=== PATIENT | male | born 1955 | race Caucasian/White ===

== ENCOUNTER → 2019-04-23 | Outpatient (CLI) | payer MEDICARE ==
[~2019-04-23] MED LIST: ASPI81CH PO; DOCU100 PO; HYDR1TAB94 PO
== END ==
LOC: PLD 08:26 → LAB SHORT 08:26
DX: D18.01 Hemangioma of skin and subcutaneous tissue (principal)
CPT/HCPCS: 88305

== ENCOUNTER 2020-05-16 09:18 | Emergency (ER) | payer MEDICARE, BC ==
[~2020-05-16] VITALS: Ht 170.2 cm; Wt 90.7 kg
[~2020-05-16 09:18] MED LIST changes: +XARELTO15 MG PO
== END 2020-05-16 10:35 | disposition home or self-care (01) ==
LOC: ER 09:18
DX: M79.604 Pain in right leg (principal); Z79.82 Long term (current) use of aspirin; Z86.718 Personal history of other venous thrombosis and embolism; Z79.899 Other long term (current) drug therapy
CPT/HCPCS: 93971; 99283-25

== ENCOUNTER 2021-03-10 07:28 | Day surgery (SDC) | payer MEDICARE, BC ==
[~2021-03-10] VITALS: Ht 170.2 cm; Wt 89.2 kg
[2021-03-10] MEDS ORDERED: ASPI325 (07:37)
--- NOTE | 2021-03-10 08:23 | NUR ---
03/10/21 0823 Cammy Velazco PT. STATES "HEADACHE IN THE MAKING." DIDN'T SLEEP LAST NIGHT & HASN'T HAD ANYTHING TO EAT OR DRINK.
== END 2021-03-10 09:40 | disposition home or self-care (01) ==
LOC: ORSCSDS 07:28
PROVIDERS: Surgery
PROC: 0DJD8ZZ Inspection of Lower Intestinal Tract, Via Natural or Artificial Opening Endoscopic (ICD-10-PCS; principal; 2021-03-10 08:30)
DX: Z12.11 Encounter for screening for malignant neoplasm of colon (principal); Z86.010 Personal history of colon polyps; I10 Essential (primary) hypertension; I48.91 Unspecified atrial fibrillation; E66.9 Obesity, unspecified; Z68.32 Body mass index [BMI] 32.0-32.9, adult; F17.210 Nicotine dependence, cigarettes, uncomplicated; Z79.82 Long term (current) use of aspirin; Z79.899 Other long term (current) drug therapy
CPT/HCPCS: J2704; J7120